=== PATIENT | female | born 1960 | race Caucasian/White ===

== ENCOUNTER 2019-10-30 18:27 | Emergency (ER) | payer BC ==
[~2019-10-30] VITALS: Ht 157.5 cm; Wt 65.9 kg
[2019-10-30] MEDS ORDERED: ketorolac trometh. 30mg/ml inj. IV ONE (18:50)
[2019-10-30] MEDS ORDERED: normal saline 1000ML IV soln IVB ONE (19:45)
[2019-10-30] MEDS ORDERED: HYDROcodone/acetaminophen 5mg/325mg tablet PO ONE (20:00)
[2019-10-30] MEDS ORDERED: HYDR-3965 PO (20:47)
[2019-10-30] MEDS ORDERED: ondansetron/PF 4mg/2ml inj IV ONE (20:50)
[2019-10-30] MEDS ORDERED: MECL12.584 PO ×2 (21:09→21:10)
[2019-10-30] MEDS ORDERED: ONDA4TAB12 PO (21:11)
[2019-10-30 21:20] VITALS: BP 147/67
== END 2019-10-30 21:22 | disposition home or self-care (01) ==
LOC: ER 18:28
DX: S52.021A Displaced fracture of olecranon process without intraarticular extension of right ulna, initial encounter for closed fracture (principal); R51 Headache; Z79.899 Other long term (current) drug therapy; W18.39XA Other fall on same level, initial encounter; Y93.89 Activity, other specified; Y92.89 Other specified places as the place of occurrence of the external cause; Y99.8 Other external cause status
CPT/HCPCS: 29105; 70450; 73080; 96374; 96375; 99284; J1885; J2405; J7030